=== PATIENT | male | born 1950 | race Asian ===

== ENCOUNTER 2019-10-16 06:47 | Outpatient (CLI) | payer MEDICARE ==
[~2019-10-16 06:47] MED LIST: AMLODIPINE PO; ATOR20TA37 PO; CARV3.1212 PO; CARVEDILOL PO; FURO40TA6 PO; LISI5TAB7 PO; LOSA25TA25 PO; MAGN400T50 PO; METFORMIN PO; PAXIL PO; POTA20TA6 PO; POTA8TAB PO; QUET300T PO; SPIR25TA PO; TRAZ-175 PO; [UNRECOGNIZED DRUG - OTHER] PO
== END 2019-10-16 23:59 | disposition home or self-care (01) ==
LOC: CVU 06:47
PROVIDERS: ATTEND Internal Medicine Cardiovascular Disease
DX: I08.1 Rheumatic disorders of both mitral and tricuspid valves (principal); I42.9 Cardiomyopathy, unspecified; E11.9 Type 2 diabetes mellitus without complications; E78.5 Hyperlipidemia, unspecified; I10 Essential (primary) hypertension
CPT/HCPCS: 93306; 93356

== ENCOUNTER 2019-10-29 20:22 | Emergency (ER) | payer MEDICARE ==
[~2019-10-29] VITALS: Ht 175.3 cm; Wt 106.3 kg
[2019-10-29 20:52] LABS: BASOPHILS # (AUTO) 0.04 x10^3/uL (0-0.1); BASOPHILS % (AUTO) 0 % (0-1); EOSINOPHILS # (AUTO) 0.38 x10^3/uL (0-0.4); EOSINOPHILS % (AUTO) 4 % (1-7); LYMPHOCYTES # (AUTO) 2.31 x10^3/uL (1-3.4); LYMPHOCYTES % (AUTO) 21 % (22-44); MD NO; MEAN CORPUSCULAR HEMOGLOBIN 32.2 pg (27.5-34.5); MEAN CORPUSCULAR HGB CONC 34.3 g/dL (33.2-36.2); MEAN CORPUSCULAR VOLUME 93.9 fL (81-97); MONOCYTES # (AUTO) 0.83 x10^3/uL (0.2-0.8); MONOCYTES % (AUTO) 8 % (2-9); NEUTROPHILS # (AUTO) 7.27 x10^3/uL (1.8-6.8); NEUTROPHILS % (AUTO) 67 % (42-75); PLATELET COUNT 197 x10^3/uL (130-400); RED BLOOD COUNT 4.63 x10^6/uL (4.38-5.82); RED CELL DISTRIBUTION WIDTH 14.7 % (9.4-14.8)
[2019-10-29 21:04] LABS: ALANINE AMINOTRANSFERASE 32 U/L (12-78); ALBUMIN 3.4 g/dL (3.4-5.0); ANION GAP 8 mmol/L (5-15); CALCIUM 7.7 mg/dL (8.5-10.1); CHLORIDE 103 mmol/L (98-107); CREATININE 1.34 mg/dL (0.7-1.3)
[2019-10-29 21:08] LABS: ALKALINE PHOSPHATASE 88 U/L (45-117); TOTAL PROTEIN 7.3 g/dL (6.4-8.2); TROPONIN I < 0.015 ng/mL (0.000-0.045)
--- NOTE | 2019-10-29 23:24 | NUR ---
THIS IS A 69 YO M W/ C/O SOB THAT STARTED TODAY AT WORK. 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 DENIES CP. RESP EVEN AND UNLABORED. VS STABLE. NADN. PT IS RESTING ON VERNA Gallardo/ IN ROOM FOR EVAL. CALL LIGHT IN REACH. WILL CONTINUE TO MONITOR.
[2019-10-29] MEDS ORDERED: FUROSEMIDE 40 MG TABLET ONE (23:35)
[2019-10-29 23:36] VITALS: BP 158/91
--- NOTE | 2019-10-29 23:38 | NUR ---
PT MEDICATED PER EMAR. AWAITING DC PAPERWORK.
--- NOTE | 2019-10-29 23:46 | NUR ---
Patient given discharge instructions and they have confirmed that they understand the instructions. Patient ambulatory with steady gait.
[2019-10-30] MEDS ORDERED: FUROSEMIDE 40 MG TABLET PO ONE
== END 2019-10-29 23:47 | disposition home or self-care (01) ==
LOC: ED 23:30
DX: R06.00 Dyspnea, unspecified (principal); I11.0 Hypertensive heart disease with heart failure; I50.9 Heart failure, unspecified; E11.65 Type 2 diabetes mellitus with hyperglycemia
CPT/HCPCS: 36415; 71045; 80053; 83880; 84484; 85025; 93005; 99285

== ENCOUNTER 2019-11-20 09:21 | Inpatient (IN) | payer MEDICARE ==
[~2019-11-20] VITALS: Ht 175.3 cm; Wt 102.3 kg
[2019-11-20] MEDS ORDERED: FLUT1BLS INH (09:56)
[2019-11-20] MEDS ORDERED: ABAC1TAB14 PO (09:56)
[2019-11-20] MEDS ORDERED: PARO40TA3 PO (09:56)
[2019-11-20] MEDS ORDERED: AMLO-150 PO ×2 (09:56)
[2019-11-20] MEDS ORDERED: TAMS-11 PO (09:56)
[2019-11-20] MEDS ORDERED: CARV6.252 PO (09:56)
[2019-11-20] MEDS ORDERED: MIRT7.5T8 PO (09:56)
[2019-11-20] MEDS ORDERED: LOSA100T14 PO (09:56)
[2019-11-20] MEDS ORDERED: ALBU18HF INH (09:56)
[2019-11-20] MEDS ORDERED: MECLIZINE CHEWABLE 25 MG TAB PO ONE (10:30)
[2019-11-20 10:59] LABS: BASOPHILS # (AUTO) 0.05 x10^3/uL (0-0.1); BASOPHILS % (AUTO) 0 % (0-1); EOSINOPHILS # (AUTO) 0.22 x10^3/uL (0-0.4); EOSINOPHILS % (AUTO) 1 % (1-7); LYMPHOCYTES # (AUTO) 1.85 x10^3/uL (1-3.4); LYMPHOCYTES % (AUTO) 12 % (22-44); MD NO; MEAN CORPUSCULAR HEMOGLOBIN 32.6 pg (27.5-34.5); MEAN CORPUSCULAR HGB CONC 33.7 g/dL (33.2-36.2); MEAN CORPUSCULAR VOLUME 96.7 fL (81-97); MEAN PLATELET VOLUME 9.4 fL (7.4-10.4); MONOCYTES # (AUTO) 0.98 x10^3/uL (0.2-0.8); MONOCYTES % (AUTO) 6 % (2-9); NEUTROPHILS # (AUTO) 12.29 x10^3/uL (1.8-6.8); NEUTROPHILS % (AUTO) 80 % (42-75); PLATELET COUNT 173 x10^3/uL (130-400); RED BLOOD COUNT 4.65 x10^6/uL (4.38-5.82); RED CELL DISTRIBUTION WIDTH 14.5 % (9.4-14.8)
[2019-11-20] MEDS ORDERED: SODIUM CHLORIDE FLUSH 10ML SYR IVF ONE (11:00)
[2019-11-20] MEDS ORDERED: SODIUM CHLORIDE 0.9% 1,000ML IVBOLUS ONE (11:00)
--- NOTE | 2019-11-20 11:01 | NUR ---
PT UPRIGHT ON GURNEY WATCHING TV, RESPONDS APPROP TO STAFF, NAD, COMFORT MEASURES PROVIDED, CALL LIGHT WITHIN REACH.
[2019-11-20 11:07] LABS: ALANINE AMINOTRANSFERASE 19 U/L (12-78); ALBUMIN 3.1 g/dL (3.4-5.0); ANION GAP 10 mmol/L (5-15); CALCIUM 8.1 mg/dL (8.5-10.1); CHLORIDE 108 mmol/L (98-107); CREATININE 1.71 mg/dL (0.7-1.3)
[2019-11-20 11:12] LABS: ALKALINE PHOSPHATASE 91 U/L (45-117); BILIRUBIN,TOTAL 0.6 mg/dL (0.2-1.0); TOTAL PROTEIN 6.7 g/dL (6.4-8.2); TROPONIN I < 0.015 ng/mL (0.000-0.045)
--- NOTE | 2019-11-20 11:40 | NUR ---
PT TO CTA
--- NOTE | 2019-11-20 11:57 | NUR ---
PT RETURNED FROM CT, REMAINS UPRIGHT ON [employer] WATCHING TV, RESPONDS APPROP TO STAFF, NAD, COMFORT MEASURES PROVIDED, CALL LIGHT WITHIN REACH. Addendum: 11/20/19 at 1202 by REGLA PT RETURNED FROM CT, REMAINS UPRIGHT ON [employer] WATCHING TV, RESPONDS APPROP TO STAFF, NAD AND REPORTS DIZZINESS RESOLVED AFTER ANTIVERT, COMFORT MEASURES PROVIDED, CALL LIGHT WITHIN REACH.
[2019-11-20] MEDS ORDERED: VISIPAQUE 320 MG/ML, 150ML BOTTLE ONE (12:07)
--- NOTE | 2019-11-20 12:43 | NUR ---
REPORT GIVEN TO LINDA
--- NOTE | 2019-11-20 13:55 | NUR ---
[facility] doctor at bedside for proper placement. Pt denies needs at this time.
[2019-11-20] MEDS ORDERED: POTASSIUM CHLORIDE 20 MEQ TAB.ER.PRT PO ONE (14:30)
--- NOTE | 2019-11-20 14:41 | NUR ---
in to collect sample for COVID testing.
--- NOTE | 2019-11-20 14:54 | NUR ---
MRI called, unable to perform MRI until COVID results come back. Protective equipment can not be worn in the MRI. notified.
--- NOTE | 2019-11-20 15:15 | NUR ---
PT RESTING COMFORTABLY IN ROOM,WITHOUT DIFF. WILL CONTINUE TO MONITOR
[2019-11-20] MEDS ORDERED: POLYETHYLENE GLYCOL 17 GM PACKET PO PRN (15:30)
[2019-11-20] MEDS ORDERED: BISACODYL 10 MG SUPP PR PRN (15:30)
[2019-11-20] MEDS ORDERED: ACETAMINOPHEN 325 MG TABLET PO PRN (15:30)
[2019-11-20] MEDS ORDERED: DOCUSATE 100 MG CAPSULE PO PRN (15:30)
[2019-11-20 15:54] LABS: TROPONIN I < 0.015 ng/mL (0.000-0.045)
--- NOTE | 2019-11-20 16:20 | NUR ---
PT RESTING IN ROOM WITHOUT DIFF. WILL CONTINUE TO
--- NOTE | 2019-11-20 17:11 | NUR ---
PT RESTING IN ROOM, AWAITING BED ASSIGNMENT. WILL CONTINUE TO MONITOR.
--- NOTE | 2019-11-20 17:27 | NUR ---
BREAK RN: MEAL TRAY REQUESTED FROM DIETARY. PT AWARE OF WAITING FOR ROOM ASSIGNMENT.
--- NOTE | 2019-11-20 17:33 | NUR ---
BREAK RN: REQUESTED HEPARIN FROM PHARMACY.
[2019-11-20] MEDS ORDERED: POTASSIUM CHLORIDE 20 MEQ TAB.ER.PRT ONE (17:47)
[2019-11-20] MEDS: HEPARIN 5,000 UNITS/ML, 1ML SQ SCH (18:00)
--- NOTE | 2019-11-20 18:30 | NUR ---
PT RESTING. WILL CONTINUE TO MONITOR.
--- NOTE | 2019-11-20 19:20 | NUR ---
PT SITTING ON SIDE OF BED, PLAYING WITH LAPTOP. PT DENIES ANY FEELINGS OF DIZZINESS OR LIGHTHEADEDNESS. WILL CONTINUE TO MONITOR.
--- NOTE | 2019-11-20 20:33 | NUR ---
PT RESTING IN BED. AWAITING BED PLACEMENT. WILL CONTINUE TO MONITOR.
--- NOTE | 2019-11-20 21:01 | NUR ---
PT SLEEPING. WARM BLANKET APPLIED AND LIGHTS LOWERED. WILL CONTINUE TO MONITOR.
[2019-11-20 21:57] LABS: TROPONIN I < 0.015 ng/mL (0.000-0.045)
--- NOTE | 2019-11-20 22:10 | NUR ---
REPORT TO ICU. PT SLEEPING WITHOUT DIFFICULT.
[2019-11-21] VITALS (8 sets, daily range): BP systolic 103–174; BP diastolic 48–91
[2019-11-21] MEDS: HEPARIN 5,000 UNITS/ML, 1ML SQ SCH ×3 (05:15→20:28)
[2019-11-21 08:06] LABS: MEAN CORPUSCULAR HEMOGLOBIN 32.8 pg (27.5-34.5); MEAN CORPUSCULAR VOLUME 96.6 fL (81-97); MEAN PLATELET VOLUME 9.3 fL (7.4-10.4); PLATELET COUNT 168 x10^3/uL (130-400); RED BLOOD COUNT 4.62 x10^6/uL (4.38-5.82); RED CELL DISTRIBUTION WIDTH 14.6 % (9.4-14.8)
[2019-11-21 08:15] LABS: ALANINE AMINOTRANSFERASE 17 U/L (12-78); ALBUMIN 3.4 g/dL (3.4-5.0); ANION GAP 7 mmol/L (5-15); CALCIUM 8.2 mg/dL (8.5-10.1); CHLORIDE 109 mmol/L (98-107)
[2019-11-21 08:25] LABS: ALKALINE PHOSPHATASE 99 U/L (45-117); BILIRUBIN,TOTAL 0.8 mg/dL (0.2-1.0)
[2019-11-21 08:34] LABS: MD SCAN
[2019-11-21 08:35] LABS: BASOPHILS # (AUTO) 0.05 x10^3/uL (0-0.1); BASOPHILS % (AUTO) 0 % (0-1); EOSINOPHILS # (AUTO) 0.39 x10^3/uL (0-0.4); EOSINOPHILS % (AUTO) 3 % (1-7); LYMPHOCYTES # (AUTO) 3.23 x10^3/uL (1-3.4); LYMPHOCYTES % (AUTO) 27 % (22-44); MONOCYTES # (AUTO) 0.62 x10^3/uL (0.2-0.8); MONOCYTES % (AUTO) 5 % (2-9); NEUTROPHILS # (AUTO) 7.65 x10^3/uL (1.8-6.8); NEUTROPHILS % (AUTO) 64 % (42-75)
[2019-11-21] MEDS ORDERED: ALBUTEROL HFA 90 MCG/SPRAY INH PRN (11:00)
[2019-11-21] MEDS: FLUTICASONE/VILANTEROL 200-25MCG/INH INH SCH (11:23)
[2019-11-21] MEDS: PAROXETINE 20 MG TABLET PO SCH (20:27)
[2019-11-21] MEDS ORDERED: metFORMIN XR 500 MG TAB.ER.24H PO SCH (21:00)
[2019-11-21] MEDS ORDERED: TAMSULOSIN 0.4 MG CAP.ER.24H PO SCH (21:00)
[2019-11-21] MEDS ORDERED: ATORVASTATIN 20 MG TABLET PO SCH (21:00)
[2019-11-21] MEDS ORDERED: TRAZODONE 100MG TABLET PO SCH (21:00)
[2019-11-22 01:03] VITALS: BP 148/90
[2019-11-22] MEDS: HEPARIN 5,000 UNITS/ML, 1ML SQ SCH (05:35)
[2019-11-22 07:16] VITALS: BP 122/73
[2019-11-22] MEDS ORDERED: CARVEDILOL 6.25 MG TABLET PO SCH (09:00)
[2019-11-22] MEDS ORDERED: LISINOPRIL 5 MG TABLET PO SCH (09:00)
[2019-11-22] MEDS: PAROXETINE 20 MG TABLET PO SCH (09:34)
[2019-11-22] MEDS: FLUTICASONE/VILANTEROL 200-25MCG/INH INH SCH (09:36)
[2019-11-22] MEDS ORDERED: LORazepam 2 MG/ML, 1ML IVPush PRN (10:00)
[2019-11-22] MEDS ORDERED: BICT1TAB PO (12:40)
[2019-11-22] MEDS ORDERED: FURO40TA6 PO (12:40)
[2019-11-23] MEDS ORDERED: BICTEGRAV/EMTRICIT/TENOFOV ALA TAB PO SCH (09:00)
== END 2019-11-22 14:17 | disposition home or self-care (01) | DRG 683 ==
LOC: ED 09:42 → EDIP 12:43 → ICU 22:37 → 3N 11-21 23:23
PROVIDERS: ADMIT Internal Medicine; ATTEND Internal Medicine Infectious Disease
DX: N17.9 Acute kidney failure, unspecified (principal); I42.8 Other cardiomyopathies; I50.40 Unspecified combined systolic (congestive) and diastolic (congestive) heart failure; I65.21 Occlusion and stenosis of right carotid artery; Z79.899 Other long term (current) drug therapy; D72.810 Lymphocytopenia; D72.828 Other elevated white blood cell count; E78.5 Hyperlipidemia, unspecified; F32.9 Major depressive disorder, single episode, unspecified; G47.00 Insomnia, unspecified; E11.9 Type 2 diabetes mellitus without complications; I11.0 Hypertensive heart disease with heart failure; Z20.828 Contact with and (suspected) exposure to other viral communicable diseases; I95.9 Hypotension, unspecified
CPT/HCPCS: 36415; 70498; 70551; 71045; 71275; 80053; 83735; 83880; 84100; 84145; 84443; 84484; 85025; 87081; 93005; 99285; G0378; J1644; Q9967; J2060; J7030

== ENCOUNTER → 2019-12-12 | Outpatient (CLI) | payer MEDICARE, OTHER ==
[~2019-12-12] MED LIST changes: +ABAC1TAB14 PO; +ALBU18HF INH; +AMLO-150 PO; +BICT1TAB PO; +CARV6.252 PO; +FLUT1BLS INH; +LIDOCAINE 1%, 10ML ONE; +LOSA100T14 PO; +MIRT7.5T8 PO; +PARO40TA3 PO; +TAMS-11 PO
== END | disposition home or self-care (01) ==
LOC: RAD 12:29
PROVIDERS: ATTEND Otolaryngology
DX: D37.030 Neoplasm of uncertain behavior of the parotid salivary glands (principal)
CPT/HCPCS: 76942; 88172; 88173

== ENCOUNTER 2020-03-15 13:26 | Outpatient (CLI) | payer MEDICARE, OTHER ==
[~2020-03-15 13:26] MED LIST changes: -LIDOCAINE 1%, 10ML ONE
== END 2020-03-15 23:59 | disposition home or self-care (01) ==
LOC: CVU 13:26
PROVIDERS: ATTEND Registered Nurse
DX: I35.1 Nonrheumatic aortic (valve) insufficiency (principal); I11.9 Hypertensive heart disease without heart failure; I42.9 Cardiomyopathy, unspecified
CPT/HCPCS: 93306; 93356

== ENCOUNTER → 2021-02-14 | Outpatient (CLI) | payer MEDICARE, OTHER | END | disposition home or self-care (01) | LOC: CVU 15:06 | PROVIDERS: ATTEND Internal Medicine Cardiovascular Disease | DX: I08.3 Combined rheumatic disorders of mitral, aortic and tricuspid valves (principal); I42.9 Cardiomyopathy, unspecified | CPT/HCPCS: 93306 ==